=== PATIENT | female | born 1990 | race American Indian/Alaskan Native ===

== ENCOUNTER 2021-03-17 22:58 | Emergency (ER) | payer SELFPAY ==
[2021-03-18 00:29] VITALS: BP 102/63
--- NOTE | 2021-03-18 07:16 | Emergency Department Report ---
ED General Adult HPI - General Chief complaint: Extremity Injury, Lower Stated complaint: FEVER/KNEE INJURY/IRREGULAR CYCLE Time Seen by Provider: 03/18/21 07:11 Source: patient Mode of arrival: Ambulatory Limitations: No Limitations - History of Present Illness Initial comments: 30-year-old -Citizen Of [place] female presents to the emergency roomStating that she injured her knee on Tuesday by hitting it on a metal ladder. She states that she has been seen by [employer] provider. She states ibuprofen helps some. Patient reports that she she had a fever on Tuesday with a T-max of 102. Patient reports that has resolved. Complains of body aches and headache. She has not had a Covid test. Onset/Timin -: days(s) Location: right, lower extremity Severity scale (0 -10): 6 Quality: aching Improves with: none, medication Worsens with: movement Associated Symptoms: fever/chills (Resolved on Tuesday) Treatments Prior to Arrival: none ED Review of Systems ROS: Stated complaint: FEVER/KNEE INJURY/IRREGULAR CYCLE Other details as noted in HPI Comment: All other systems reviewed and negative ED Physical Exam - General Limitations: No Limitations General appearance: alert, in no apparent distress - Head Head exam: Present: atraumatic, normocephalic - Eye Eye exam: Present: normal appearance - ENT ENT exam: Present: mucous membranes moist - Neck Neck exam: Present: normal inspection - Respiratory Respiratory exam: Present: normal lung sounds bilaterally. Absent: respiratory distress, chest wall tenderness, accessory muscle use - Cardiovascular Cardiovascular Exam: Present: regular rate - GI/Abdominal GI/Abdominal exam: Present: soft, normal bowel sounds. Absent: distended - Expanded Lower Extremity Exam Right Knee exam: Present: full ROM, tenderness, full knee extension. Absent: swelling, abrasion, laceration, ecchymosis, deformity, crepidus, dislocation, erythema, effusion Lower Leg exam: Present: normal inspection, full ROM. Absent: tenderness, swelling Ankle exam: Present: normal inspection Foot/Toe exam: Present: normal inspection Neuro vascular tendon exam: Present: no vascular compromise - Back Exam Back exam: Present: normal inspection - Neurological Exam Neurological exam: Present: alert, oriented X3 - Skin Skin exam: Present: warm, dry, intact, normal color. Absent: rash ED Course Vital Signs 03/18/21 00:25 Temperature 98.6 F Pulse Rate 76 Respiratory 20 Rate Blood Pressure 102/63 O2 Sat by Pulse 95 Oximetry ED Medical Decision Making - Medical Decision Making 30-year-old -Citizen Of [place] female presents to the emergency roomStating that she injured her knee on Tuesday by hitting it on a metal ladder. She states that she has been seen by [employer] provider. She states ibuprofen helps some. Patient reports that she she had a fever on Tuesday with a T-max of 102. Patient reports that has resolved. Complains of body aches and headache. She has not had a Covid test. Patient has been here for over 6 hours and has been hemodynamically stable. Patient will be referred to orthopedist and a primary care provider. There is no need for any x-rays as patient has full range of motion no swelling able to ambulate without difficulties. Critical care attestation.: If time is entered above; I have spent that time in minutes in the direct care of this critically ill patient, excluding procedure time. ED Disposition Clinical Impression: Right medial knee pain Disposition: DC- TO HOME OR SELFCARE Is pt being admited?: No Does the pt Need Aspirin: No Condition: Stable Instructions: Acute Knee Pain, Adult, [id number] Additional Instructions: Recommend Tylenol ibuprofen and follow-up with orthopedist. Referrals: PRIMARY CAREMD [Primary Care Provider] - 3-5 Days SHANTEL GOODE MD [Staff Physician] - 3-5 Days MOE BECKETT MD [Staff Physician] - 3-5 Days Forms: Work/School Release Form(ED) Time of Disposition: 07:14
== END 2021-03-18 07:28 | disposition home or self-care (01) ==
LOC: ED 22:58
DX: M25.561 Pain in right knee (principal)
CPT/HCPCS: 99281